=== PATIENT | female | born 1980 | race Caucasian/White ===

== ENCOUNTER 2016-10-20 18:19 | Inpatient (IN) | payer MEDICARE, OTHER ==
[~2016-10-20] VITALS: Ht 154.9 cm; Wt 79.5 kg
[~2016-10-20 18:19] MED LIST: ARIP20TA4 PO; ATV/1 PO; CLON0.3T PO; PANT40TA PO; VORT1TAB3 PO
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
[2016-10-20 19:12] LABS: URINE APPEARANCE CLEAR (CLEAR); URINE BILIRUBIN NEG (NEG); URINE COLOR YELLOW; URINE NITRITE NEG (NEG); URINE PH 7.5 (4.5-7.5); URINE SPECIFIC GRAVITY 1.006 (1.000-1.030); UROBILINOGEN NEG (NEG); ZZUR CULT IF INDIC CLEAN CATCH NO
[2016-10-20 19:14] LABS: MANUAL MICROSCOPIC REQUIRED? NO; REVIEW REQ? NO
[2016-10-20 19:24] LABS: BASO % 0.1 %; BASO ABS # 0.01 K/uL (0-0.2); COMPLETE YES; IG% 0.1 %; LYMPH % 24.8 %; LYMPH ABS # 1.77 K/uL (1.2-3.4); MEAN CELL VOLUME 93.3 fL (80-100); MEAN CORPUSCULAR HEMOGLOBIN 30.6 pg (25-34); MEAN CORPUSCULAR HGB CONC 32.8 g/dl (32-36); MEAN PLATELET VOLUME 11.4 fL (7.4-10.4); MONO % 4.1 %; NEUT % 69.9 %; PLATELET COUNT 196 K/uL (130-400); RED BLOOD COUNT 4.61 M/uL (4.2-5.4); WHITE BLOOD COUNT 7.14 K/uL (4.8-10.8)
[2016-10-20 19:35] LABS: BENZODIAZEPINE, URINE NEG (NEG); COCAINE,URINE NEG (NEG); PHENCYCLIDINE, URINE NEG (NEG)
[2016-10-20 19:43] LABS: BUN/CREATININE RATIO 7.4 (10-20); CALCIUM 8.6 mg/dl (8.5-10.1); POTASSIUM 3.5 mmol/L (3.5-5.1)
[2016-10-20 19:54] LABS: ACETAMINOPHEN < 2 ug/ml (10-30); ALB/GLOB RATIO 1.1 (0.9-2); THYROID STIMULATING HORMONE 0.812 uIu/ml (0.300-4.500)
[2016-10-20] MEDS ORDERED: LORAZEPAM 1 MG TAB SL STA (20:00)
[2016-10-20] MEDS ORDERED: NURSING VERBAL MED ORDER ONE (20:30)
[2016-10-20] MEDS ORDERED: SODIUM CHLORIDE 0.65% NA SOLN 45 ML (OCEAN) PRN (20:45)
[2016-10-20] MEDS ORDERED: hydrOXYzine HCL 25 MG TAB PO PRN (20:45)
[2016-10-20] MEDS ORDERED: BISMUTH SUBSALICYLATE PER ML OMNICELL CHARGE PO PRN (20:45)
[2016-10-20] MEDS ORDERED: ACETAMINOPHEN 325 MG TAB PO PRN (20:45)
[2016-10-20] MEDS ORDERED: ALUMINUM/MAGNESIUM SUSP 30 ML UDC PO PRN (20:45)
[2016-10-20] MEDS ORDERED: MAGNESIUM HYDROXIDE SUSP 30 ML UDC PO PRN (20:45)
[2016-10-20] MEDS ORDERED: HALO5TAB PO (20:47)
[2016-10-20] MEDS ORDERED: HALO10TA17 PO (20:47)
[2016-10-20] MEDS ORDERED: ARIP30TA3 PO (20:47)
[2016-10-20 21:19] VITALS: O2SAT 98
[2016-10-20 21:53] VITALS: BP 132/84; PULSE 68; TEMP 36.9; Ht 154.9 cm; Wt 79.5 kg
[2016-10-20] MEDS: ARIPIprazole TAB 10 MG TAB PO SCH ×2 (22:00→23:34)
[2016-10-20] MEDS: LORAZEPAM 1 MG TAB PO SCH ×2 (22:00→23:34)
[2016-10-20] MEDS: CLONIDINE HCL 0.3 MG TAB PO SCH ×2 (22:00→23:34)
[2016-10-20] MEDS: TRINTELLIX-ORDER AWAITING ACTION SCH (23:34)
[2016-10-21] MEDS: hydrOXYzine HCL 25 MG TAB PO PRN (00:34)
[2016-10-21] MEDS ORDERED: NURSING VERBAL MED ORDER ONE (01:00)
[2016-10-21] MEDS: LORAZEPAM 1 MG TAB PO PRN (01:12)
[2016-10-21] MEDS ORDERED: HALOPERIDOL 5 MG TAB PO PRN (01:15)
[2016-10-21] MEDS: TRINTELLIX-ORDER AWAITING ACTION SCH ×2 (08:00→23:45)
[2016-10-21] MEDS: PANTOprazole SOD 40 MG TAB PO SCH (09:00)
[2016-10-21 09:27] VITALS: BP 132/84; PULSE 68; TEMP 36.9
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
[2016-10-21] MEDS: HALOPERIDOL 5 MG TAB PO SCH ×2 (13:11→23:02)
[2016-10-21] MEDS: LORAZEPAM 2 MG/ML 1 ML VIAL IM PRN (19:02)
[2016-10-21] MEDS: HALOPERIDOL LACTATE 5 MG/ML 1 ML VIAL IM PRN (19:02)
[2016-10-21] MEDS ORDERED: HALOPERIDOL 5 MG TAB PO SCH (22:00)
[2016-10-21] MEDS: CLONIDINE HCL 0.3 MG TAB PO SCH (23:01)
[2016-10-21] MEDS: ARIPIprazole TAB 15 MG TAB PO SCH (23:02)
[2016-10-21] MEDS: LORAZEPAM 1 MG TAB PO SCH (23:02)
[2016-10-22 07:07] VITALS: BP_SYST 100; BP_SYST 86; BP_DIAS 54; BP_DIAS 65; PULSE 49; PULSE 75; TEMP 36.5
[2016-10-22] MEDS: TRINTELLIX-ORDER AWAITING ACTION SCH ×2 (08:00→15:21)
[2016-10-22 08:34] LABS: CHOLESTEROL/HDL RATIO 3.4
[2016-10-22] MEDS: HALOPERIDOL 5 MG TAB PO SCH ×3 (08:47→21:11)
[2016-10-22] MEDS: PANTOprazole SOD 40 MG TAB PO SCH (08:50)
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
--- NOTE | 2016-10-22 14:02 | Psychiatric Progress Notes ---
Psychiatric Progress Note Date of Service Oct 22, 2016. Notes decreasing clonidine to 0.2 mg hs given sinus blu on EKG, nl QTc. Patient's past med trials reviewed from [facility] [facility] records.
[2016-10-22] MEDS: HALOPERIDOL LACTATE 5 MG/ML 1 ML VIAL IM PRN (16:41)
[2016-10-22] MEDS: LORAZEPAM 2 MG/ML 1 ML VIAL IM PRN (16:41)
[2016-10-22] MEDS: CLONIDINE HCL 0.1 MG TAB PO SCH (20:59)
[2016-10-22 21:00] VITALS: BP 91/61; PULSE 53
[2016-10-22] MEDS: LORAZEPAM 1 MG TAB PO SCH (21:10)
[2016-10-22] MEDS: ARIPIprazole TAB 15 MG TAB PO SCH (21:10)
[2016-10-22] MEDS: hydrOXYzine HCL 25 MG TAB PO PRN (22:24)
[2016-10-23 07:00] VITALS: BP_SYST 110; BP_SYST 95; BP_DIAS 64; BP_DIAS 76; PULSE 56; PULSE 93; TEMP 36.8
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
[2016-10-23] MEDS: PANTOprazole SOD 40 MG TAB PO SCH (09:00)
[2016-10-23] MEDS: HALOPERIDOL 5 MG TAB PO SCH ×3 (09:57→23:01)
[2016-10-23] MEDS: LORAZEPAM 2 MG/ML 1 ML VIAL IM PRN (15:59)
[2016-10-23] MEDS: HALOPERIDOL LACTATE 5 MG/ML 1 ML VIAL IM PRN (16:00)
[2016-10-23] MEDS ORDERED: HALOPERIDOL LACTATE 5 MG/ML 1 ML VIAL ONE (18:08)
[2016-10-23] MEDS ORDERED: NURSING VERBAL MED ORDER ONE ×2 (18:15→21:30)
[2016-10-23] MEDS ORDERED: LORAZEPAM 2 MG/ML 1 ML VIAL IM SCH (18:45)
[2016-10-23] MEDS ORDERED: OLANZAPINE 10 MG/2.1 ML SDV IM PRN (19:15)
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
[2016-10-23] MEDS: CLONIDINE HCL 0.1 MG TAB PO SCH (20:58)
[2016-10-23] MEDS: ARIPIprazole TAB 15 MG TAB PO SCH (21:50)
[2016-10-23] MEDS: hydrOXYzine HCL 25 MG TAB PO PRN (21:51)
[2016-10-23] MEDS: BENZTROPINE MESYLATE 1 MG TAB PO PRN (21:57)
[2016-10-23 22:04] VITALS: BP 97/62; PULSE 103
[2016-10-23] MEDS: LORAZEPAM 1 MG TAB PO SCH (23:00)
[2016-10-24 06:59] VITALS: BP_SYST 104; BP_SYST 125; BP_DIAS 68; BP_DIAS 82; PULSE 109; PULSE 79; TEMP 36.6
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
[2016-10-24] MEDS: VORTIOXETINE HBR 20 MG PO SCH (09:00)
[2016-10-24] MEDS: PANTOprazole SOD 40 MG TAB PO SCH (09:00)
[2016-10-24] MEDS: HALOPERIDOL 5 MG TAB PO SCH ×3 (11:23→20:59)
[2016-10-24] MEDS: LORAZEPAM 1 MG TAB PO PRN (11:24)
[2016-10-24] MEDS: LORAZEPAM 2 MG/ML 1 ML VIAL IM PRN (15:30)
[2016-10-24] MEDS: HALOPERIDOL LACTATE 5 MG/ML 1 ML VIAL IM PRN (15:31)
[2016-10-24] MEDS: ARIPIprazole TAB 15 MG TAB PO SCH (20:56)
[2016-10-24] MEDS: LORAZEPAM 1 MG TAB PO SCH (20:58)
[2016-10-24] MEDS: CLONIDINE HCL 0.1 MG TAB PO SCH (20:58)
[2016-10-24 21:07] VITALS: BP 109/70; PULSE 72
[2016-10-24] MEDS: BENZTROPINE MESYLATE 1 MG TAB PO PRN (21:52)
[2016-10-25] MEDS: hydrOXYzine HCL 25 MG TAB PO PRN ×3 (00:03→23:17)
[2016-10-25] MEDS: LORAZEPAM 1 MG TAB PO PRN ×3 (01:27→23:18)
[2016-10-25 07:01] VITALS: BP_SYST 94; BP_SYST 99; BP_DIAS 62; BP_DIAS 67; PULSE 54; PULSE 87; TEMP 36.8
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
[2016-10-25] MEDS: PANTOprazole SOD 40 MG TAB PO SCH (08:45)
[2016-10-25] MEDS: VORTIOXETINE HBR 20 MG PO SCH (08:45)
[2016-10-25] MEDS: HALOPERIDOL 5 MG TAB PO SCH ×3 (08:45→21:13)
[2016-10-25] MEDS: LORAZEPAM 2 MG/ML 1 ML VIAL IM PRN ×2 (10:15→18:47)
[2016-10-25] MEDS: HALOPERIDOL LACTATE 5 MG/ML 1 ML VIAL IM PRN ×2 (10:20→18:47)
[2016-10-25] MEDS: ARIPIprazole TAB 15 MG TAB PO SCH (21:10)
[2016-10-25] MEDS: LORAZEPAM 1 MG TAB PO SCH (21:10)
[2016-10-25] MEDS: BENZTROPINE MESYLATE 1 MG TAB PO PRN (21:10)
[2016-10-25] MEDS: CLONIDINE HCL 0.1 MG TAB PO SCH (21:11)
[2016-10-26 07:01] VITALS: BP_SYST 108; BP_SYST 91; BP_DIAS 59; BP_DIAS 74; PULSE 55; PULSE 91; TEMP 36.4
[2016-10-26] MEDS: HALOPERIDOL 5 MG TAB PO SCH ×3 (08:37→21:16)
[2016-10-26] MEDS: VORTIOXETINE HBR 20 MG PO SCH (08:38)
[2016-10-26] MEDS: PANTOprazole SOD 40 MG TAB PO SCH (08:41)
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
[2016-10-26] MEDS: HALOPERIDOL LACTATE 5 MG/ML 1 ML VIAL IM PRN (18:39)
[2016-10-26] MEDS: LORAZEPAM 2 MG/ML 1 ML VIAL IM PRN (18:39)
[2016-10-26 20:54] VITALS: BP 99/65; PULSE 69
[2016-10-26] MEDS: CLONIDINE HCL 0.1 MG TAB PO SCH (20:55)
[2016-10-26] MEDS: LORAZEPAM 1 MG TAB PO SCH (21:15)
[2016-10-26] MEDS: ARIPIprazole TAB 15 MG TAB PO SCH (21:15)
[2016-10-27 06:49] VITALS: BP_SYST 110; BP_SYST 116; BP_DIAS 74; BP_DIAS 76; PULSE 108; PULSE 88; TEMP 36.5
[2016-10-27] MEDS: PANTOprazole SOD 40 MG TAB PO SCH (07:45)
[2016-10-27] MEDS: HALOPERIDOL 5 MG TAB PO SCH ×3 (07:46→21:09)
[2016-10-27] MEDS: VORTIOXETINE HBR 20 MG PO SCH (07:47)
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
[2016-10-27] MEDS ORDERED: HALOPERIDOL LACTATE 5 MG/ML 1 ML VIAL IM PRN (12:00)
[2016-10-27 20:38] VITALS: BP 130/86; PULSE 100; TEMP 36.8
[2016-10-27] MEDS: CLONIDINE HCL 0.1 MG TAB PO SCH (21:09)
[2016-10-27] MEDS: LORAZEPAM 1 MG TAB PO SCH (21:09)
[2016-10-27] MEDS: ARIPIprazole TAB 15 MG TAB PO SCH (21:10)
[2016-10-28 06:59] VITALS: BP_SYST 105; BP_SYST 111; BP_DIAS 68; BP_DIAS 75; PULSE 103; PULSE 80; TEMP 36.6
[2016-10-28] MEDS: PANTOprazole SOD 40 MG TAB PO SCH (08:50)
[2016-10-28] MEDS: VORTIOXETINE HBR 20 MG PO SCH (08:51)
[2016-10-28] MEDS: HALOPERIDOL 5 MG TAB PO SCH ×3 (08:51→21:20)
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
[2016-10-28] MEDS: CLONIDINE HCL 0.1 MG TAB PO SCH (21:20)
[2016-10-28] MEDS: LORAZEPAM 1 MG TAB PO SCH (21:20)
[2016-10-28] MEDS: ARIPIprazole TAB 15 MG TAB PO SCH (21:20)
[2016-10-28 21:36] VITALS: BP 125/79; PULSE 84
[2016-10-29 07:02] VITALS: BP_SYST 102; BP_SYST 109; BP_DIAS 69; BP_DIAS 76; PULSE 63; PULSE 85; TEMP 36.5
[2016-10-29] MEDS: HALOPERIDOL 5 MG TAB PO SCH ×3 (08:28→21:13)
[2016-10-29] MEDS: VORTIOXETINE HBR 20 MG PO SCH (08:29)
[2016-10-29] MEDS: PANTOprazole SOD 40 MG TAB PO SCH (08:30)
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
[2016-10-29 20:59] VITALS: BP 128/89; PULSE 98
[2016-10-29] MEDS: ARIPIprazole TAB 15 MG TAB PO SCH (21:09)
[2016-10-29] MEDS: CLONIDINE HCL 0.1 MG TAB PO SCH (21:10)
[2016-10-29] MEDS: LORAZEPAM 1 MG TAB PO SCH (21:12)
[2016-10-30 06:55] VITALS: BP_SYST 105; BP_SYST 95; BP_DIAS 64; BP_DIAS 73; PULSE 66; PULSE 82; TEMP 36.8
[2016-10-30] MEDS: VORTIOXETINE HBR 20 MG PO SCH (09:06)
[2016-10-30] MEDS: HALOPERIDOL 5 MG TAB PO SCH ×3 (09:06→22:22)
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
--- NOTE | 2016-10-30 09:54 | Psych Management Progress Note ---
Psychiatry Miscellaneous Date of Service: October 30, 2016. Patient seen, MS assessed. Rates mood as 8. Cooperative with care and treatment plan as outlined by LIDAR TECHNICIAN. Significant increase in participation in therapeutic activities since last contact.
[2016-10-30] MEDS: LORAZEPAM 2 MG/ML 1 ML VIAL IM PRN (11:55)
[2016-10-30] MEDS: LORAZEPAM 1 MG TAB PO SCH (22:23)
[2016-10-30] MEDS: CLONIDINE HCL 0.1 MG TAB PO SCH (22:23)
[2016-10-30] MEDS: ARIPIprazole TAB 15 MG TAB PO SCH (22:23)
[2016-10-31 06:53] VITALS: BP_SYST 100; BP_SYST 97; BP_DIAS 68; BP_DIAS 77; PULSE 66; PULSE 80; TEMP 36.5
[2016-10-31] MEDS: HALOPERIDOL 5 MG TAB PO SCH ×3 (08:42→21:05)
[2016-10-31] MEDS: VORTIOXETINE HBR 20 MG PO SCH (08:43)
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
[2016-10-31] MEDS: ARIPIprazole TAB 15 MG TAB PO SCH (21:04)
[2016-10-31] MEDS: LORAZEPAM 1 MG TAB PO SCH (21:05)
[2016-10-31] MEDS: CLONIDINE HCL 0.1 MG TAB PO SCH (21:05)
[2016-11-01 06:59] VITALS: BP_SYST 100; BP_SYST 94; BP_DIAS 63; BP_DIAS 65; PULSE 57; PULSE 85; TEMP 36.6
[2016-11-01] MEDS: HALOPERIDOL 5 MG TAB PO SCH ×2 (08:44→12:55)
[2016-11-01] MEDS: VORTIOXETINE HBR 20 MG PO SCH (08:45)
[2016-11-01] MEDS ORDERED: CTP1 PO (09:31)
--- NOTE | 2016-11-01 10:08 | Discharge Instructions ---
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 Protein 7.0 Albumin 3.7 Globulin 3.3 Albumin/Globulin Ratio 1.1 Thyroid Stimulating Hormone (TSH) 0.812 Salicylates Level < 1.7 Acetaminophen Level < 2 Ethyl Alcohol mg/dL < 3.0 Fasting Glucose 85 Triglycerides Level 209 Cholesterol Level 190 HDL Cholesterol 56 LDL Cholesterol, Calculated 92 VLDL Cholesterol, Calculated 42 Cholesterol/HDL Ratio 3.4 Total Time Total Time Spent (min): Greater than 30 minutes Total Time Included: examination of the patient, discharge planning, medication reconciliation Tobacco Cessation at Discharge Smoking Status: Never Smoker FDA approved Prescription: non-smoker Antipsychotic Meds Rationale Patient has severe PTSD and chronic suicidality and urges to harm herself which have responded well to treatment with both a typical and atypical antipsychotic. She has failed monotherapy with Abilify, quetiapine, risperidone , olanzapine, ziprasidone, and Thorazine. Problem Qualifiers (1) Depression: Depression Type: major depressive disorder Major depression recurrence: recurrent Active/Remission status: currently active Major depression episode severity: severe Psychotic features: without psychotic features Qualified Codes: F33.2 - Major depressive disorder, recurrent severe without psychotic features
--- NOTE | 2016-11-10 12:12 | Psych Management Progress Note ---
Psychiatry Commitment Date of Service: Oct 21, 2016. Patient admitted under 201 to [facility] on 10/20/16 who made acts of furtherance requiring physical intervention to keep from self-harm (she placed a bed sheet around her neck and tried to tighten it requiring nursing to use force on the sheet to keep patient from tightening further, she would not release the sheet and sheet was removed by nursing cutting the sheet to extricate it from the patient) she then went on to make multiple overt statements of suicidality to include "I don't want to be here, I want to " See 302 petition and Physicians Examination statement for further patient statements regarding self harm and intention to . Due to her statements and use of significant physical intervention to keep her from self harming, and her unwillingness to don safe clothing (removing risk of applying her own clothing to her neck as potential risk). Patient was evaluated by this provider and [facility] was called, 302 was completed (10.21.16 at 2:20am)as she was not longer voluntary to receive the recommended treatment to keep her safe. Additional interventions included verbal redirection to facilitate movement to the safe room and oral prn meds (in addition to her usual abilify 20mg, clonidine 0.3mg and 1mg ativan at bedtime, she was also given ativan 1mg and 5mg haldol po) in efforts to de-escalate her agitation/anxiety, to possibly facilitate sleep and to further keep from action of further self harm. She will be placed on one-to-one while covering with a blanket and wearing her clothes, safe sensory tools will be offered to help patient distract from her racing self-harming thoughts. (This Note was written 10/21/16. Provider was alerted in October that the note was not visible to other health care providers. This provider logged in and this note was listed as "In Process" This note was opened and amended to reflect this problem and signed on 11/10/16 to allow it to be formally complete and visible to health care providers)
== END 2016-11-01 13:04 | disposition home or self-care (01) | DRG 885 ==
LOC: C.EDB 18:21 → C.MHU 20:34
PROVIDERS: ADMIT Psychiatry & Neurology Psychiatry; ATTEND Psychiatry & Neurology Psychiatry
DX: F33.2 Major depressive disorder, recurrent severe without psychotic features (principal); R45.851 Suicidal ideations; F50.9 Eating disorder, unspecified; S41.112D Laceration without foreign body of left upper arm, subsequent encounter; F43.10 Post-traumatic stress disorder, unspecified; F41.1 Generalized anxiety disorder; E66.9 Obesity, unspecified; Z68.30 Body mass index [BMI] 30.0-30.9, adult; F60.3 Borderline personality disorder; X78.9XXD Intentional self-harm by unspecified sharp object, subsequent encounter; Y92.009 Unspecified place in unspecified non-institutional (private) residence as the place of occurrence of the external cause

== ENCOUNTER 2017-10-28 12:56 | Emergency (ER) | payer MEDICARE, OTHER ==
[~2017-10-28] VITALS: Ht 154.9 cm; Wt 87.7 kg
[~2017-10-28 12:56] MED LIST changes: -ARIP20TA4 PO; +ARIP30TA3 PO; -ATV/1 PO; -CLON0.3T PO; +CTP1 PO; +HALO10TA17 PO; +HALO5TAB PO; -PANT40TA PO
[2017-10-28 12:59] VITALS: TEMP 36.7; Ht 154.9 cm; Wt 87.7 kg
[2017-10-28] MEDS ORDERED: LORAZEPAM 1 MG TAB SL STA ×2 (13:12→15:51)
[2017-10-28] MEDS ORDERED: ABL10 PO (13:16)
[2017-10-28] MEDS ORDERED: HYDR25CA PO (13:16)
[2017-10-28 14:18] LABS: HEMATOCRIT 40.7 % (37-47); HEMOGLOBIN 13.5 g/dL (12.0-16.0); MEAN CELL VOLUME 91.7 fL (80-100); MEAN CORPUSCULAR HEMOGLOBIN 30.4 pg (25-34); MEAN CORPUSCULAR HGB CONC 33.2 g/dl (32-36); MEAN PLATELET VOLUME 10.1 fL (7.4-10.4); PLATELET COUNT 239 K/uL (130-400); RED CELL DISTRIBUTION WIDTH CV 12.9 % (11.5-14.5); RED CELL DISTRIBUTION WIDTH SD 43.5 fL (36.4-46.3); WHITE BLOOD COUNT 6.78 K/uL (4.8-10.8)
[2017-10-28 14:36] LABS: ALT/SGPT 21 U/L (12-78); AST/SGOT 16 U/L (15-37); BLOOD UREA NITROGEN 9 mg/dl (7-18); CALCIUM 8.8 mg/dl (8.5-10.1); CARBON DIOXIDE 26 mmol/L (21-32); CREATININE 0.85 mg/dl (0.60-1.20); GLUCOSE 86 mg/dl (70-99); POTASSIUM 3.5 mmol/L (3.5-5.1); SODIUM 142 mmol/L (136-145)
[2017-10-28 14:47] LABS: ALKALINE PHOSPHATASE 50 U/L (45-117); TOTAL PROTEIN 7.6 gm/dl (6.4-8.2)
[2017-10-28] MEDS ORDERED: HALOPERIDOL DECANOATE INJ 50 MG/ML VIAL IM ONE (17:00)
[2017-10-28] MEDS ORDERED: HALOPERIDOL LACTATE 5 MG/ML 1 ML VIAL ONE (17:01)
--- NOTE | 2017-10-28 18:06 | EMERGENCY ROOM VISIT NOTE ---
History Report prepared by Samantha: Macarena Telles Under the Supervision of: Dr. Anival Marin M.D. First contact with patient: 13:03 Chief Complaint: MENTAL HEALTH EVALUATION Stated Complaint: DEPRESSION, SUICIDAL THOUGHTS History of Present Illness The patient is a 37 year old female who presents to the Emergency Room for a mental health evaluation. The patient reports she is feeling depressed and suicidal. The patient states "I just want to end my life this weekend". The patient's outpatient psychiatric therapist is room with the patient. The patient was being seen by her therapist this afternoon when she admitted her suicidal thoughts. The patient's therapist then had the patient follow her from her office to the ED for further psychiatric care. The patient admits to having a suicidal plan to get and use a gun from her cousin. The patient does not personally own any guns. The patient states she has not acted on her suicidal thoughts because "I do not want to hurt my therapist". The patient has been taking her psychiatric medications as prescribed. She denies any alcohol use. She denies cutting herself recently. The patient is requesting to for a medication to help with her "revved up feeling of internal rage". She denies any chest pain, fever or vomiting. Source of History: patient Position: other (generalized) Quality: other (mental health evaluation) Timing: constant Modifying Factors (Worsening): other (none) Modifying Factors (Relieving): other (none) Associated Symptoms: No fevers, No chest pain, No vomiting Review of Systems See HPI for pertinent positives & negatives. A total of 10 systems reviewed and were otherwise negative. Past Medical & Surgical Medical Problems: (1) Borderline personality disorder (2) Depression (3) Eating disorder, unspecified (4) Generalized anxiety disorder (5) Obesity (BMI 30-39.9) (6) PTSD (post-traumatic stress disorder) (7) self inflicted laceration Family History FHx: mental illness Social History Smoking Status: Never Smoker Drug Use: none Housing Status: lives alone Occupation Status: unemployed Current/Historical Medications Scheduled Aripiprazole (Abilify), 1 TAB PO DAILY Hydroxyzine Pamoate (Vistaril), 2 CAP PO HS Vortioxetine HBr (Trintellix), 20 MG PO HS Allergies Coded Allergies: Lamotrigine (Verified Allergy, Unknown, rash, 10/28/17) Mushroom (Unverified Allergy, Unknown, SHORTNESS OF BREATH, 10/28/17) Patient states that she "can't breathe" Oxycodone (Verified Allergy, Unknown, rash, 10/28/17) Penicillins (Verified Allergy, Unknown, jerky movements, 10/28/17) Physical Exam Vital Signs Date Time Temp Pulse Resp B/P (MAP) Pulse Ox O2 Delivery O2 Flow Rate FiO2 10/28/17 12:59 36.7 84 165/112 96 Room Air Physical Exam Constitutional: Vital signs reviewed. Eyes: Pupils are equal round reactive to light. Conjunctiva are noninjected. ENT: Pharynx is clear without erythema or exudate. Mucous membranes are moist. Neck supple without meningeal signs. Respiratory: Clear to auscultation bilaterally. Breath sounds are equal bilaterally. Cardiovascular: Regular rate and rhythm. No rubs or gallops. GI: Soft, nondistended and nontender. Bowel sounds are present. Musculoskeletal: No peripheral edema. Old multiple healed lacerations to forearm bilaterally. Integumentary: No cyanosis. Neurological: The patient is awake and alert. No focal deficits. Psychiatric: Depressed affect. Medical Decision & Procedures Laboratory Results 10/28/17 13:42 10/28/17 13:42 Test 10/28/17 13:34 10/28/17 13:42 Urine Color YELLOW Urine Appearance CLEAR (CLEAR) Urine pH 6.0 (4.5-7.5) Urine Specific [place] 1.009 (1.000-1.030) Urine Protein NEG (NEG) Urine Glucose (UA) NEG (NEG) Urine Ketones NEG (NEG) Urine Occult Blood NEG (NEG) Urine Nitrite NEG (NEG) Urine Bilirubin NEG (NEG) Urine Urobilinogen NEG (NEG) Urine Leukocyte Esterase NEG (NEG) Urine Test NEG (NEG) Urine Opiates Screen NEG (NEG) Urine Methadone, Qualitative NEG (NEG) Urine Barbiturates NEG (NEG) Urine Phencyclidine (PCP) Level NEG (NEG) Ur Amphetamine/Methamphetamine NEG (NEG) MDMA (Ecstasy) Screen NEG (NEG) Urine Benzodiazepines Screen NEG (NEG) Urine Cocaine Metabolite NEG (NEG) Urine Marijuana (THC) NEG (NEG) Red Blood Count 4.44 M/uL (4.2-5.4) Mean Corpuscular Volume 91.7 fL (80-100) Mean Corpuscular Hemoglobin 30.4 pg (25-34) Mean Corpuscular Hemoglobin Concent 33.2 g/dl (32-36) RDW Standard Deviation 43.5 fL (36.4-46.3) RDW Coefficient of Variation 12.9 % (11.5-14.5) Mean Platelet Volume 10.1 fL (7.4-10.4) Anion Gap 6.0 mmol/L (3-11) Est Creatinine Clear Calc Drug Dose 90.3 ml/min Estimated GFR () 100.7 Estimated GFR (Non- 86.9 BUN/Creatinine Ratio 10.3 (10-20) Calcium Level 8.8 mg/dl (8.5-10.1) Total Bilirubin 0.4 mg/dl (0.2-1) Direct Bilirubin < 0.1 mg/dl (0-0.2) Aspartate Amino Transf (AST/SGOT) 16 U/L (15-37) Alanine Aminotransferase (ALT/SGPT) 21 U/L (12-78) Alkaline Phosphatase 50 U/L (45-117) Total Protein 7.6 gm/dl (6.4-8.2) Albumin 4.0 gm/dl (3.4-5.0) Thyroid Stimulating Hormone (TSH) 1.140 uIu/ml (0.300-4.500) Salicylates Level < 1.7 mg/dl (2.8-20) Acetaminophen Level < 2 ug/ml (10-30) Ethyl Alcohol mg/dL < 3.0 mg/dl (0-3) Laboratory results as reviewed by me. Medications Administered Medications (Trade) Dose Ordered Sig/Jessy Route Start Time Stop Time Status Last Admin Dose Admin Lorazepam (Ativan Tab) 1 mg NOW STAT SL 10/28/17 13:12 10/28/17 13:13 DC 10/28/17 13:31 1 MG Lorazepam (Ativan Tab) 1 mg NOW STAT SL 10/28/17 15:51 10/28/17 15:52 DC 10/28/17 16:05 1 MG Haloperidol Lactate (Haldol Inj) 5 mg STK-MED ONCE .ROUTE 10/28/17 17:01 10/28/17 17:02 DC 10/28/17 17:01 5 MG ED Course 1307: The patient was evaluated in room A7. A complete history and physical exam was performed. 1312: Ordered Lorazepam 1 mg SL. 1550: The patient is requesting more Ativan. 1551: Ordered Lorazepam 1 mg SL. 1652: Psychiatry is requesting Haldol for the patient. 170: Ordered Haldol Decanoate Inj 5 mg IM. 170: Ordered Haldol Inj 5 mg .ROUTE. Medical Decision This is a 37-year-old female presents for mental health evaluation. I did perform a limited focused review of portions of the patient's old chart on the electronic medical record. The patient was admitted October 20 for depression and suicidal ideation. I did evaluate the patient as noted above. Patient is presenting with suicidal ideation and depression. She also states she feels in her anger. I did treat her with Ativan 1 mg sublingually. She continued to complain of this anxious feeling and was given 1 mg of Ativan again. I did order and review the patient' s blood work as noted in the electronic medical record. The patient was medically cleared. She was evaluated by the mental health worker who agreed she needed inpatient treatment. The patient continued to feel agitated and so she was given Haldol IM. The patient is currently awaiting bed placement and was signed out to Dr. gibson. Medication Reconcilliation Current Medication List: was personally reviewed by me Blood Pressure Screening Patient's blood pressure: Elevated blood pressure Blood pressure disposition: Referred to PCP Impression Primary Impression: Mood disorder Additional Impression: Suicidal ideation Scribe Attestation The scribe's documentation has been prepared under my direct and personally reviewed by me in its entirety. I confirm that the note above accurately reflects all work, treatment, procedures, and medical decision making performed by me. Departure Information Dispostion Still a Patient Referrals No Doctor, Assigned (PCP) Patient Instructions My [facility] Problem Qualifiers
--- NOTE | 2017-10-28 23:46 | EMERGENCY ROOM VISIT NOTE ---
ED Visit Note First contact with patient: 18:00 Patient signed out to me at change of shift by Dr. Marin. Patient awaiting evaluation and placement. Pt signed out to Dr. De La Rosa overnight.
--- NOTE | 2017-10-29 06:05 | EMERGENCY ROOM VISIT NOTE ---
ED Visit Note First contact with patient: 00:48 37 yr old female initially evaluated and medically cleared by Dr Marin who signed patient out to Dr Pruitt who signed patient out to me. Patient with suicidal ideation/depression and requesting inpatient treatment. Signed out to Dr Gauthier awaiting placement.
--- NOTE | 2017-10-29 14:39 | EMERGENCY ROOM VISIT NOTE ---
ED Visit Note First contact with patient: 14:38 The patient was signed out to me change of shift by Dr. Bansal. Please see his note for continuation of care. The patient is a 37-year-old female who presented to the emergency department for mental health evaluation. The patient had significant suicidal ideation. The patient was felt to be a good candidate for voluntary inpatient management. The patient was medically cleared and at this time a bed search is underway. The patient was ordered her outpatient Abilify. The patient was signed over to Dr. Iqbal change of shift. Please see her note for continuation of care.
--- NOTE | 2017-10-29 17:54 | Psychiatric Progress Notes ---
Psychiatric Progress Note Date of Service October 29, 2017. Notes S: Quyen Carl is a 37-year-old female known to our unit most recent admission September 2016 with a history of mood disorder and borderline personality disorder. I reviewed her prior [facility] records, her current emergency medical record from the ED and spoke with nursing staff and case management. I met with the patient by the bedside. She confirmed that she is feeling distraught and was having suicidal ideations that brought her to the hospital yesterday. She stated she had a better morning this morning but again this afternoon was having SI, feeling depressed and was feeling "like a piece of shit" and "wanting to do something that would get me to retirement." She did endorse suicidal ideations but denied imminent intent while in the ER. However she was having ideations to act out and destroy equipment so that she could "go to retirement." When she was asked what she can do to continue to manage her on behavior she stated she did not know that she likes to exercise and she is not in the hospital. Provider did attempt to encourage her that though not ideal we could get her a mat to do some basic calisthenics if she thought that would help. She reported depressed mood and feeling anxious while in the hospital. She declined her Abilify earlier today due to wanting to take it at night. She was very clear that she requires brand Abilify. This provider noted I will check on trying to looks at the hospital and we would give her medications this evening if we had the correct medications and doses. She did note she had Ativan yesterday in the ED that was not helpful ultimately then stated she was given Haldol which she felt helped her. I told her the goal is not to dose Haldol if she felt overwhelmed that could be made available an as needed urgent situation. The patient felt very supported by her outpatient prescriber Marj Torres PA-C visited this morning and was expected later today for second visit. The patient was upset that she was not being accepted to the [facility] and that had she had been declined to many other medical centers today. She states she was aware case management was looking at multiple hospitals to include hospital she was less than thrilled to go to. She continued to maintain that she was voluntary for admission. Mental status exam: Patient was lying in the ER hospital bed with blankets pulled up to her neck. She opens her eyes with verbal stimuli. Her speech is spontaneous with regular rate and rhythm volume and tone. Her psychomotor activity was unremarkable as she laid reasonably still with occasional movement of her body was unremarkable. She did become tearful at [address] to hear from her eye. She was otherwise non-labile. Her speech was spontaneous with regular rate and rhythm volume, notably sad tone. She was oriented to person place and situation and her intelligence was average with intact recall judged by her participation in the evaluation recalling events accurately. Her thought process was coherent and goal directed. Thought content was notable for suicidal ideations and self-deprecation thoughts based on her long stay in the ER. She denied imminent suicidal plan while in the hospital but did not feel safe to leave the hospital. She denied homicidal ideations but was having agitated thoughts of acting out to destroy things. She showed minimal spontaneous thought on how to maintain behavioral control but was agreeable to further conversation. Her insight is fair her judgment is fair her impulse control is fair. Assessment and plan: Quyen Carl is a 37-year-old female with a history of mood disorder borderline personality disorder. She is on Trental X 20, Abilify 10 and hydroxyzine 50 all at bedtime. I will order these medications for her and if she is still here this evening she will receive them. She is aware of this and that we continue to monitor the acuity at our unit in calling other units to try to find placement for her. We discussed how case management has tirelessly continue ongoing active advocacy for this patient in trying to find a facility for her.
[2017-10-29] MEDS ORDERED: HALOPERIDOL LACTATE 5 MG/ML 1 ML VIAL IM STA (19:00)
[2017-10-29] MEDS ORDERED: ARIPIprazole TAB 10 MG TAB PO SCH (21:00)
[2017-10-29] MEDS ORDERED: hydrOXYzine HCL 25 MG TAB PO SCH (21:00)
--- NOTE | 2017-10-29 23:36 | EMERGENCY ROOM VISIT NOTE ---
ED Visit Note First contact with patient: 14:26 I received this patient in signout at the change of shift from Dr. Gauthier, pending psychiatric bed search. The patient initially limited her bed search to several facilities. She did consent to [facility] after multiple facilities declined her. She became agitated and reiterated her impulsive thoughts and recurrent thoughts of self-harm. She also states she is feeling as though she will do something in order to go to [facility]. Patient has been requesting IM Haldol as "nothing else" seems to help her anxiety. Patient was given 5 mg of IM Haldol yesterday. She does not feel that the benzodiazepines are helping. After sometime in the department, the patient did receive 2.5 mg of IM Haldol. She was accepted at [facility], but then declined to consent to the admission. She is currently been in the department for 35 hours and it is felt that she is being manipulative and impulsive. Given her suicidal statements and need for inpatient psychiatric care, the 302 petitioning statement has been signed by myself. The patient will be transferred to [facility] for inpatient psychiatric management. Please see previous documentation for details of the history, physical and visit.
[2017-10-30] MEDS: TRINTELLIX: ORDER AWAITING ACTION SCH ×2 (00:36→07:29)
--- NOTE | 2017-10-30 06:41 | EMERGENCY ROOM VISIT NOTE ---
ED Visit Note First contact with patient: 00:48 37 yr old female signed out to me by Dr Iqbal. Suicidal patient who required 302 earlier in the day. She has been accepted at [facility] and has been awaiting transport which is coming in the morning. No issues overnight and she declines any needs when evaluated.
[2017-10-30 08:40] VITALS: BP 131/77; PULSE 83; O2SAT 97
[2017-10-30] MEDS ORDERED: ARIPIprazole TAB 10 MG TAB PO SCH (09:00)
== END 2017-10-30 08:45 ==
LOC: C.EDB 12:58 → C.EDA 10-30 08:45
DX: Z00.8 Encounter for other general examination (principal); R45.851 Suicidal ideations; F33.2 Major depressive disorder, recurrent severe without psychotic features; F50.9 Eating disorder, unspecified; F43.10 Post-traumatic stress disorder, unspecified; F41.1 Generalized anxiety disorder; E66.9 Obesity, unspecified; Z68.30 Body mass index [BMI] 30.0-30.9, adult; F60.3 Borderline personality disorder; Z79.899 Other long term (current) drug therapy; Z88.0 Allergy status to penicillin; Z88.8 Allergy status to other drugs, medicaments and biological substances; Z91.018 Allergy to other foods